=== PATIENT | male | born 1980 ===

== ENCOUNTER 2024-12-12 08:42 | Emergency (ER) | payer OTHER ==
[~2024-12-12] VITALS: Ht 167.6 cm; Wt 99.8 kg
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
[2024-12-12] MEDS: ORPHENADRINE 60MG/2ML IM ONE (09:21)
[2024-12-12] MEDS: ketOROlac 30MG VIAL (30MG/ML) IM ONE (09:21)
[2024-12-12] MEDS: TRIAMCINOLONE ACETONIDE 40 MG/ML 1ML VIAL IM ONE (09:21)
--- NOTE | 2024-12-12 09:39 | HMCIMG ---
LUMBAR SPINE 4+VWS HISTORY: Fracture COMPARISON: None FINDINGS: 3 images of lumbar spine were obtained. Grade 2 anterolisthesis is seen at the L5-S1 level with disc space narrowing. There are bilateral L5 pars defects. There is straightening of normal lordotic curvature which may be related to muscle spasm or positioning. No loss of vertebral height is seen. No fracture or dislocation is seen. Degenerative changes are seen. IMPRESSION: 1. Findings as described above.
--- NOTE | 2024-12-12 09:40 | HMCIMG ---
CERV SPINE 2-3VWS HISTORY: Neck fracture COMPARISON: None FINDINGS: 3 images of cervical spine were obtained. There is straightening of normal lordotic curvature which may be related to muscle spasm or positioning. No loss of vertebral height is seen. No fracture or dislocation is seen. Degenerative changes are seen. IMPRESSION: 1. No fracture is seen.
[2024-12-12] MEDS ORDERED: NAPR-1194 PO (09:49)
[2024-12-12] MEDS ORDERED: METH-662 PO (09:49)
[2024-12-12 10:02] VITALS: BP 141/89; PULSE 75; RESP 16; TEMP 98; O2SAT 98
== END 2024-12-12 10:10 | disposition home or self-care (01) ==
LOC: EDH 08:42
DX: M62.838 Other muscle spasm (principal); I10 Essential (primary) hypertension; V89.2XXA Person injured in unspecified motor-vehicle accident, traffic, initial encounter; Y93.89 Activity, other specified; Y92.89 Other specified places as the place of occurrence of the external cause; Y99.8 Other external cause status
CPT/HCPCS: 99284; 72040; 72110; 96372 ×3; J1885; J3301; J2360